=== PATIENT | female | born 1990 | race Caucasian/White ===

== ENCOUNTER 2022-11-06 16:03 | Outpatient (CLI) | payer MEDICAID, SELFPAY ==
[2022-11-06 16:47] LABS: HCG Quant, Pregnancy 5 mIU/mL (1-3)
[2022-11-08 12:56] LABS: Chlamydia Result Negative (Negative); GC Result Negative (Negative)
== END 2022-11-06 16:04 | disposition home or self-care (01) ==
LOC: LBO 16:11
PROVIDERS: Visit Provider Advanced Practice Midwife
DX: O20.0 Threatened abortion (principal); Z11.3 Encounter for screening for infections with a predominantly sexual mode of transmission
CPT/HCPCS: 36415; 86850; 86900; 86901; 87491; 87591; 84702

== ENCOUNTER 2022-11-13 02:59 | Outpatient (CLI) | payer MEDICAID, SELFPAY ==
[2022-11-13 14:18] LABS: HCG Quant, Pregnancy 1 mIU/mL (1-3)
== END 2022-11-13 03:00 | disposition home or self-care (01) ==
LOC: LBO 02:59
PROVIDERS: Visit Provider Advanced Practice Midwife
DX: O20.0 Threatened abortion (principal)
CPT/HCPCS: 36415; 84702